=== PATIENT | female | born 1985 | race African-American/Black ===

== ENCOUNTER 2019-03-19 15:50 | Emergency (ER) | payer OTHER, SELFPAY ==
--- NOTE | ~2019-03-19 | US_ITS ---
EXAMINATION: US OB <=14 wk fetus w TV DATE: 03/19/2019 21:55 INDICATION: Right lower abdominal pain, concern for ectopic TECHNIQUE: Real-time pelvic transabdominal and transvaginal ultrasound was performed. COMPARISON: 02/15/2019 FINDINGS: The uterus measures 13.9 x 8.6 x 8.1 cm. There is an intrauterine gestational sac. h eart motion is identified measuring 167 beats per minute (bpm) by M-mode Doppler. The crown rum p length measures 3.9 cm , which correlates with an estimated gestational age of 10 weeks and 6 day(s ) (+/-) 7 day(s). The right ovary measures 2.2 x 2.7 x 3.0 cm. The left ovary measures 3.3 x 2.1 x 1.7 cm. A 2.0 cm hy poechoic area seen posteriorly likely represents a uterine fibroid, better appreciated on the compari son examination. There is no free fluid in the pelvis. IMPRESSION: 1. Live intrauterine with an estimated gestational age of 10 weeks and 6 day(s) (+/-) 7 day (s) and an estimated delivery date of 10/09/2019. Reviewed, dictated and finalized at location A. 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 Live intrauterine with an estimated gestational age of 10 weeks an d 6 day(s) (+/-) 7 day(s) and an estimated delivery date of 10/09/2019.
[2019-03-19 17:06] VITALS: BP 145/105; PULSE 120; RESP 20; TEMP 37.2; O2SAT 99
[2019-03-19 17:31] LABS: Basophils Percent Auto 0.1 % (0.2-1.2); Eosinophils Percent Auto 0.2 % (0-4.4); Hematocrit 39.2 % (37.0-47.0); Hemoglobin 13.4 g/dL (12.0-15.0); Immature Granulocyte Absolute 0.08 K/mm3 (0.00-0.031); Immature Granulocyte Percent A 0.6 % (0-0.5); Immature Platelet Fraction Pct 2.8 % (0.9-11.2); Lymphocytes Absolute Auto 2.39 K/mm3 (0.9-3.2); Lymphocytes Percent Auto 17.6 % (18.3-44.2); Mean Corpuscular HGB Conc 34.2 g/dl (32-36); Mean Corpuscular Hemoglobin 30.8 pg (26-34); Mean Corpuscular Volume 90.1 fl (80-100); Mean Platelet Volume 9.6 fl (7.4-10.4); Monocytes Absolute Auto 0.8 K/mm3 (0.1-0.6); Monocytes Percent Auto 5.8 % (2.6-8.5); Neutrophils Absolute Auto 10.3 K/mm3 (1.3-6.7); Neutrophils Percent Auto 75.7 % (45.5-73.1); Platelet Count Result 278 k/mm3 (150-375); Red Blood Count 4.35 M/mm3 (4.2-5.4); Red Cell Distribution Width 12.6 % (11.5-14.5); White Blood Count 13.6 K/mm3 (4.5-10.0)
[2019-03-19 17:51] LABS: Add Urine Microscopic? YES; Appearance Urine Cloudy (Clear); Bacteria Urine 4+ /hpf; Bilirubin Urine Negative (Negative); Blood Urine Negative (Negative); Color Urine Yellow (Yellow); Glucose Urine UA Negative (Negative); Ketones Urine Negative (Negative); Leukocyte Esterase Ur Trace LEU/UL (Negative); Mucus Urine Few /lpf; Nitrate Urine Positive (Negative); Protein Urine Negative (Negative); Specific Grav Ur 1.023 (1.001-1.035); Squamous Epithelial Cell Urine Many /hpf (Few); Urobilinogen Urine Negative mg/dL (<2.0)
--- NOTE | 2019-03-19 20:12 | ED.ABDPAIN ---
HPI - Abdominal Pain General Chief Complaint: Abdominal Pain Stated Complaint: 12 wks Time Seen by Provider: 03/19/19 20:04 Source: patient Mode of arrival: ambulatory Limitations: no limitations History of Present Illness HPI narrative: The pt is a 33 y/o female who presents to the ED c/o constant RLQ ABD pain onset 6 hours ago. Pt states that she is 12 weeks currently. Pt reports nausea, but denies vomiting, vaginal bleeding, and vaginal discharge. Pt notes that she has not had an ultrasound performed for this . MD elicited complaint: abdominal pain Onset (ago): hour(s) (6) Pain Consistency: constant Location: RLQ Associated symptoms: nausea Related Data Allergies Allergy/AdvReac Type Severity Reaction Status Date / Time No Known Allergies Allergy Unverified 11/25/17 12:39 Review of Systems Review of Systems: All systems reviewed & are unremarkable except as noted in HPI and below Gastrointestinal: Gastrointestinal: Reports abdominal pain (RLQ), Reports nausea and Denies vomiting Genitourinary: Genitourinary: Denies abnormal vaginal bleeding and Denies vaginal discharge PMFSH Past Medical History Medical History Healthy adult Surgical History Surgical History No history of previous surgery Family History Family History (Updated 02/15/19 @ 23:35 by Ava Canchola RN) Other No significant family history Social History Social History Smoking packs per day: 0.5 Smoking cigarettes per day: 10.0 Years smoked: 17 Smoking pack-years: 8.50 Smoking status: Current every day smoker Tobacco type: cigarettes Alcohol intake: never Substance use: never Gender identity (if verbalized by the patient): Female Spiritual care concerns: No Agree to blood products: Yes Exam Narrative: Exam Narrative: GENERAL: Well-appearing, well-nourished, and in no acute distress. HEAD: Normocephalic, atraumatic. EYES: PERRLA and EOMI. ENT: Nares clear, Mucous membranes moist. NECK: Supple. CHEST: Clear to auscultation. No respiratory distress. HEART: Regular rate and rhythm. No murmur heard. Normal peripheral pulses. ABDOMEN: Soft, pain and tenderness in the right lower abd , non distended, normal active bowel sounds. EXTREMITIES: Normal range of motion. No edema. SKIN: Warm, dry, no rash. NEURO: No focal deficits. Alert and oriented x3. PSYCH: Normal mood and affect. Course Course Emergency Course: Inform patient about her lab work, ultrasound findings. Advised her to drink plenty of fluids, take antibiotic as prescribed. And follow-up with her OB doctor. Vital Signs Vital signs: Vital Signs Temperature 37.2 C 03/19/19 17:06 Pulse Rate 120 H 03/19/19 17:06 Respiratory Rate 20 03/19/19 17:06 Blood Pressure 145/105 H 03/19/19 17:06 Pulse Oximetry 99 03/19/19 17:06 Temperature 37.2 C 03/19/19 17:06 Pulse Rate 84 03/19/19 22:29 Respiratory Rate 16 03/19/19 22:29 Blood Pressure 117/74 03/19/19 22:29 Pulse Oximetry 100 03/19/19 22:29 MDM - Abdominal Pain Lab Data Result diagrams: 03/19/19 17:20 Labs: Lab Results 03/19/19 03/19/19 03/19/19 Range/Units 17:20 17:20 17:39 WBC 13.6 H (4.5-10.0) K/mm3 RBC 4.35 (4.2-5.4) M/mm3 Hgb 13.4 (12.0-15.0) g/dL Hct 39.2 (37.0-47.0) % MCV 90.1 (80-100) fl MCH 30.8 (26-34) pg MCHC 34.2 (32-36) g/dl RDW 12.6 (11.5-14.5) % Plt Count 278 (150-375) k/mm3 MPV 9.6 (7.4-10.4) fl Immature Gran % (Auto) 0.6 H (0-0.5) % Neut % (Auto) 75.7 H (45.5-73.1) % Lymph % (Auto) 17.6 L (18.3-44.2) % [place] % (Auto) 5.8 (2.6-8.5) % Eos % (Auto) 0.2 (0-4.4) % Baso % (Auto) 0.1 L (0.2-1.2) % Lymph # (Auto) 2.39 (0.9-3.2) K/mm3 [place] # (Auto) 0.8 H (0.1-0.6)
[2019-03-19 20:53] VITALS: BP 116/75; PULSE 90; RESP 18; O2SAT 100
[2019-03-19 22:29] VITALS: BP 117/74; PULSE 84; RESP 16; O2SAT 100
[2019-03-19 23:13] VITALS: BP 115/85; PULSE 81; RESP 18; TEMP 37; O2SAT 100
== END 2019-03-19 23:15 | disposition home or self-care (01) ==
PROVIDERS: Emergency Medicine; Emergency Provider Family Medicine
DX: O26.891 Other specified pregnancy related conditions, first trimester (principal); R10.31 Right lower quadrant pain; O23.41 Unspecified infection of urinary tract in pregnancy, first trimester; O99.331 Smoking (tobacco) complicating pregnancy, first trimester; F17.210 Nicotine dependence, cigarettes, uncomplicated; Z3A.10 10 weeks gestation of pregnancy
CPT/HCPCS: 36415; 76801; 76817; 81001; 84702; 85025; 85055; 87077; 87086; 87088; 87186; 99284

== ENCOUNTER 2019-03-26 22:01 | Emergency (ER) | payer OTHER, SELFPAY ==
[2019-03-26 22:20] VITALS: BP 109/63; PULSE 96; RESP 16; TEMP 36.9; O2SAT 100
[2019-03-26 22:59] LABS: Basophils Percent Auto 0.3 % (0.2-1.2); Eosinophils Percent Auto 0.3 % (0-4.4); Hematocrit 34.7 % (37.0-47.0); Hemoglobin 11.8 g/dL (12.0-15.0); Immature Granulocyte Absolute 0.08 K/mm3 (0.00-0.031); Immature Granulocyte Percent A 0.7 % (0-0.5); Lymphocytes Absolute Auto 3.19 K/mm3 (0.9-3.2); Lymphocytes Percent Auto 26.9 % (18.3-44.2); Mean Corpuscular Hemoglobin 30.6 pg (26-34); Mean Corpuscular Volume 89.9 fl (80-100); Mean Platelet Volume 9.2 fl (7.4-10.4); Monocytes Absolute Auto 0.9 K/mm3 (0.1-0.6); Monocytes Percent Auto 7.2 % (2.6-8.5); Neutrophils Absolute Auto 7.7 K/mm3 (1.3-6.7); Neutrophils Percent Auto 64.6 % (45.5-73.1); Platelet Count Result 270 k/mm3 (150-375); Red Blood Count 3.86 M/mm3 (4.2-5.4); Red Cell Distribution Width 12.4 % (11.5-14.5); White Blood Count 11.9 K/mm3 (4.5-10.0)
[2019-03-26 23:08] LABS: Add Urine Microscopic? YES; Appearance Urine Clear (Clear); Bacteria Urine Trace /hpf; Bilirubin Urine Negative (Negative); Blood Urine Negative (Negative); Color Urine Yellow (Yellow); Glucose Urine UA Negative (Negative); Ketones Urine Negative (Negative); Leukocyte Esterase Ur Negative LEU/UL (Negative); Mucus Urine Rare /lpf; Nitrate Urine Negative (Negative); Protein Urine Negative (Negative); RBC Urine 0-2 /hpf (0-2); Specific Grav Ur 1.025 (1.001-1.035); Squamous Epithelial Cell Urine Many /hpf (Few); Urobilinogen Urine Negative mg/dL (<2.0); WBC Urine 0-3 /hpf
[2019-03-26 23:12] LABS: Alanine Aminotransferase 17 U/L (4-35); Albumin Level 3.8 g/dL (3.5-5.1); Alkaline Phosphatase 43 U/L (38-126); Aspartate Amino Transferase 26 U/L (14-36); Bilirubin,Total < 0.1 mg/dL (0.2-1.3); Blood Urea Nitrogen 10 mg/dL (7-17); Calcium 9.1 mg/dL (8.4-10.2); Carbon Dioxide 21 mmol/L (22-30); Chloride 101 mmol/L (98-107); Estimated CRCL calculation 161 ml/min; Estimated Glomerular Filt Rate > 60; Glucose 92 mg/dL (65-105); Lipase 121 U/L (23-300); Potassium 4.2 mmol/L (3.4-5.0); Sodium 134 mmol/L (137-145)
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
[2019-03-27] MEDS: ACETAMINOPHEN 500 MG TABLET 1000 MG PO (02:04)
[2019-03-27 02:07] VITALS: BP 118/83; PULSE 81; RESP 12; O2SAT 100
[2019-03-27 02:15] VITALS: BP 118/83; PULSE 87; RESP 15; O2SAT 100
== END 2019-03-27 02:15 | disposition home or self-care (01) ==
PROVIDERS: Emergency Provider Emergency Medicine
DX: O9A.211 Injury, poisoning and certain other consequences of external causes complicating pregnancy, first trimester (principal); S39.91XA Unspecified injury of abdomen, initial encounter; O26.891 Other specified pregnancy related conditions, first trimester; R82.71 Bacteriuria; O99.331 Smoking (tobacco) complicating pregnancy, first trimester; F17.210 Nicotine dependence, cigarettes, uncomplicated; Z3A.12 12 weeks gestation of pregnancy; W51.XXXA Accidental striking against or bumped into by another person, initial encounter; Y93.F9 Activity, other caregiving
CPT/HCPCS: 36415; 80053; 81001; 83690; 84702; 85025; 87070; 87491; 87591; 87808; 99284; A9270

== ENCOUNTER 2019-05-18 21:41 | Emergency (ER) | payer OTHER, SELFPAY ==
[2019-05-18 21:47] VITALS: BP 134/82; PULSE 104; RESP 18; TEMP 36.3; O2SAT 100
--- NOTE | 2019-05-18 22:04 | ED.ABDPAIN ---
HPI - Abdominal Pain General Chief Complaint: Vaginal Bleeding Stated Complaint: spotting, abd paain, vomiting Time Seen by Provider: 05/18/19 21:57 Source: RN notes reviewed History of Present Illness HPI narrative: Patient presents emergency department from work for abdominal pain. Patient states she is currently 17 weeks and is followed by Dr. Garcia at [facility]. She states she is been having lower abdominal pain bilaterally described as cramping for the past 3 days that worsened today. She also states that she has been having mild vaginal bleeding that she notes is small spots of blood for the past 2 days. Patient states he is taking no pain medication today. She states that she has had no fevers or chills nausea vomiting diarrhea or any other symptoms. She was seen by her PCP yesterday and states that she had had heart tones performed and recommended patient to take it easy and follow as an outpatient Related Data Home Medications Medication Instructions Recorded Confirmed [id number] fum-folic ac-om3 pkg PO 05/18/19 [Daily ] Allergies Allergy/AdvReac Type Severity Reaction Status Date / Time No Known Allergies Allergy Verified 05/18/19 21:50 Review of Systems Review of Systems: Narrative: Gen.: Denies fevers or chills ENT: Denies congestion Respiratory: Denies shortness of breath or cough CV: Denies chest pain or palpitations GI: Reports abdominal pain, denies nausea, emesis or diarrhea see HPI Musculoskeletal: Denies back pain or muscle pain Neuro: Denies numbness, tingling, weakness or focal weakness Skin: Denies rash Except as documented, all other systems reviewed and negative [facility] Family History Family History (Updated 02/15/19 @ 23:35 by Ava Canchola RN) Other No significant family history Social History Social History Smoking packs per day: 0.5 Smoking cigarettes per day: 10.0 Years smoked: 17 Smoking pack-years: 8.50 Smoking status: Current every day smoker Tobacco type: cigarettes Alcohol intake: never Substance use: never Gender identity (if verbalized by the patient): Female Spiritual care concerns: No Agree to blood products: Yes Exam Narrative: Exam Narrative: APPEARANCE: No acute distress, nontoxic, resting in bed HEENT: Normocephalic, atraumatic, OMM RESPIRATORY: No respiratory distress, clear to auscultation bilaterally with no rhonchi wheezing or rales CARDIOVASCULAR: RRR s murmur ABDOMINAL: Soft, gravid uterus palpated, tender palpation right lower quadrant left lower quadrant, no tenderness right upper quadrant left upper quadrant, no rebound or guarding : Normal external exam, moderate amount of thick white discharge no vaginal bleeding, cervix is closed, bilateral adnexal tenderness, no cervical motion tenderness MUSCULOSKELETAl: Moves all extremities. No clubbing, cyanosis or edema. NEURO: Awake and alert. Following commands, speech normal, no focal deficits SKIN:: Warm, dry. Normal Color PSYCHIATRIC: Normal affect/mood Course Course Emergency Course: Reviewed old records. Patient with B+ blood type from 02/15/2019 Patient states she is requesting to see an [facility]ERR[facility] OPERATOR hospital Discussed with Dr Schafer for GAS DERRICK OPERATOR presentation work-up. At this time recommends patient receive trichomonas 2 g orally x1 as well as be placed on Macrobid for 5 days for UTI. Agrees with plan for discharge and follow-up as an outpatient Patient states that they are feeling much better at this time. States abdominal pain has improved. Repeat abdominal exam shows the patient's abdomen to be soft with no surgical abdomen present discussed with patient results of workup and diagnosis. Discussed need for follow-up with primary care physician, reasons to return to the emergency department in proper use of medication. Patient understands and agrees to current treatment plan Vital Signs Vital
[2019-05-18 22:17] LABS: Basophils Percent Auto 0.3 % (0.2-1.2); Eosinophils Absolute Auto 0.1 K/mm3 (0-0.3); Eosinophils Percent Auto 0.9 % (0-4.4); Hematocrit 34.2 % (37.0-47.0); Hemoglobin 11.4 g/dL (12.0-15.0); Immature Granulocyte Absolute 0.09 K/mm3 (0.00-0.031); Immature Granulocyte Percent A 0.6 % (0-0.5); Lymphocytes Absolute Auto 3.44 K/mm3 (0.9-3.2); Lymphocytes Percent Auto 22.6 % (18.3-44.2); Mean Corpuscular HGB Conc 33.3 g/dl (32-36); Mean Corpuscular Hemoglobin 30.6 pg (26-34); Mean Corpuscular Volume 91.9 fl (80-100); Mean Platelet Volume 9.7 fl (7.4-10.4); Monocytes Absolute Auto 0.9 K/mm3 (0.1-0.6); Monocytes Percent Auto 6.1 % (2.6-8.5); Neutrophils Absolute Auto 10.6 K/mm3 (1.3-6.7); Neutrophils Percent Auto 69.5 % (45.5-73.1); Platelet Count Result 256 k/mm3 (150-375); Red Blood Count 3.72 M/mm3 (4.2-5.4); Red Cell Distribution Width 13.2 % (11.5-14.5); White Blood Count 15.2 K/mm3 (4.5-10.0)
[2019-05-18] MEDS: LACTATED RINGERS 1,000 ML 999 ML IV CONT (22:22)
[2019-05-18 22:34] LABS: Alanine Aminotransferase 15 U/L (4-35); Albumin Level 3.6 g/dL (3.5-5.1); Alkaline Phosphatase 52 U/L (38-126); Aspartate Amino Transferase 29 U/L (14-36); Bilirubin,Total 0.2 mg/dL (0.2-1.3); Blood Urea Nitrogen 15 mg/dL (7-17); Calcium 8.8 mg/dL (8.4-10.2); Carbon Dioxide 20 mmol/L (22-30); Chloride 107 mmol/L (98-107); Estimated CRCL calculation 111 ml/min; Estimated Glomerular Filt Rate > 60; Glucose 71 mg/dL (65-105); Potassium 4.1 mmol/L (3.4-5.0); Sodium 133 mmol/L (137-145)
[2019-05-18 23:18] LABS: Add Urine Microscopic? YES; Appearance Urine Cloudy (Clear); Bacteria Urine Trace /hpf; Bilirubin Urine Negative (Negative); Blood Urine 1+ (Negative); Color Urine Straw (Yellow); Glucose Urine UA Negative (Negative); Ketones Urine Negative (Negative); Leukocyte Esterase Ur 2+ LEU/UL (Negative); Mucus Urine Rare /lpf; Nitrate Urine Negative (Negative); Protein Urine Negative (Negative); RBC Urine 0-2 /hpf (0-2); Specific Grav Ur 1.013 (1.001-1.035); Squamous Epithelial Cell Urine Moderate /hpf (Few); Urobilinogen Urine Negative mg/dL (<2.0)
[2019-05-19] MEDS: NITROFURANTOIN MONOHYD MACROCR 100 MG CAP PO (00:41)
[2019-05-19] MEDS: metroNIDAZOLE 250 MG TABLET 2000 MG PO (00:41)
[2019-05-19 00:47] VITALS: BP 132/88; PULSE 80; RESP 18; O2SAT 99
== END 2019-05-19 00:50 | disposition home or self-care (01) ==
PROVIDERS: Emergency Provider Emergency Medicine
DX: O98.312 Other infections with a predominantly sexual mode of transmission complicating pregnancy, second trimester (principal); A59.00 Urogenital trichomoniasis, unspecified; O23.42 Unspecified infection of urinary tract in pregnancy, second trimester; O26.892 Other specified pregnancy related conditions, second trimester; R10.31 Right lower quadrant pain; R10.32 Left lower quadrant pain; O99.332 Smoking (tobacco) complicating pregnancy, second trimester; F17.210 Nicotine dependence, cigarettes, uncomplicated; Z3A.17 17 weeks gestation of pregnancy
CPT/HCPCS: 36415; 80053; 81001; 85025; 87070; 87077; 87086; 87088; 87186; 87491; 87591; 87808; 96361; 96365; 99284; A9270; J0131; J7120

== ENCOUNTER 2019-07-12 17:23 | Observation (INO) | payer OTHER, SELFPAY ==
[2019-07-12 17:22] VITALS: TEMP 36.2
[2019-07-12 17:39] VITALS: BP 122/72; PULSE 86
[2019-07-12 17:45] VITALS: BP 132/86; PULSE 90
[2019-07-12 18:30] VITALS: BMI 25.1
--- NOTE | 2019-07-12 19:05 | PC.NURSE ---
Took sandwich/chips and drink to pt. Pt states she is currently having no pain and is very hungry.
--- NOTE | 2019-07-12 19:08 | OBADM ---
This patient, Sunny Michelle, admitted to the OB room OB Post 116 for observation. Patient/family oriented to hospital policies and general routines including ID bracelet, bed and alarms, visiting hours, pain management, procedures, bathroom and other care routines, personal items, smoking policy, room service/diet, and visiting hours. Patient/Family are encouraged to report perceived risks to care and to ask questions if they do not understand what they are told or what they should do. Pt denies leaking or bleeding. Pt feeling movements.
[2019-07-12] MEDS: FAMOTIDINE 20 MG/2 ML VIAL IV PUSH (19:29)
--- NOTE | 2019-07-16 08:44 | PM.OBTRLD ---
OB - Triage/Final Diagnosis Final Diagnosis (1) Abdominal pain affecting : Code(s): O26.899 - Other specified related conditions, unspecified trimester; R10.9 - Unspecified abdominal pain Status: Acute
== END 2019-07-12 22:35 | disposition home or self-care (01) ==
LOC: ANHED 17:26 → ANHOBPP 17:36
PROVIDERS: Admitting Provider Obstetrics & Gynecology; Visit Provider Obstetrics & Gynecology
DX: O26.892 Other specified pregnancy related conditions, second trimester (principal); R10.9 Unspecified abdominal pain; Z3A.27 27 weeks gestation of pregnancy
CPT/HCPCS: 96365; 96375; G0378; G0379; J0131

== ENCOUNTER 2019-08-04 21:20 | Emergency (ER) | payer OTHER, SELFPAY ==
[2019-08-04 21:23] VITALS: BP 121/71; PULSE 94; RESP 18; TEMP 36.2; O2SAT 99
--- NOTE | 2019-08-05 00:08 | ED.GENADULT ---
HPI - General Adult General Chief complaint: Unspecified Stated complaint: hemorriods bleeding/painful Time Seen by Provider: 08/05/19 00:09 History of Present Illness HPI narrative: Patient presents for rectal pain. She is 32 weeks and has hemorrhoids. They started the beginning of this . They are not bleeding. She also complains of a sore next to the rectum on the buttock. She does not know whether it had any drainage. She said no fever chills or sweats. She was given a stool softener but has not started taking it. The only way that she can pass her stools to get in the bathtub. She still taking her vitamins with iron. She still smokes cigarettes, but does not drink alcohol. 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 Onset (ago): month(s) Location: buttocks Radiation: non-radiation Severity: severe Severity scale (1-10): 8 Quality: constant Pain Consistency: constant Relieving factors: none Exacerbating factors: other (Sitting or stooling) Associated symptoms: denies other symptoms Treatments prior to arrival: none Related Data Home Medications Medication Instructions Recorded Confirmed Daily See Rx Instructions .ROUTE .COMPLEX 05/18/19 07/12/19 cephalexin 250 mg PO DAILY 07/12/19 07/12/19 metoclopramide HCl [Reglan] 10 mg PO PRN PRN 07/12/19 07/12/19 acetaminophen [Tylenol Extra 1,000 mg PO QID PRN 08/04/19 Strength] Allergies Allergy/AdvReac Type Severity Reaction Status Date / Time No Known Allergies Allergy Verified 08/04/19 23:34 Review of Systems Review of Systems: Narrative: CONSTITUTIONAL: Denies fever, chills, or sweats. EYES: Denies visual changes, redness, or discharge. ENT: Denies rhinorrhea, congestion, sore throat, or otalgia. CARDIOVASCULAR: Denies chest pain, palpitations, or edema. RESPIRATORY: Denies cough or dyspnea. GASTROINTESTINAL: Denies abdominal pain, vomiting, but does have nausea and diarrhea. GENITOURINARY: Denies dysuria or hematuria. SKIN: Denies rash or itching. MUSCULOSKELETAL: Denies back pain, joint pain, or myalgia. NEUROLOGIC: Denies headache, numbness, or weakness. PSYCHIATRIC: Denies anxiety or depression. [facility] Past Medical History Medical History Ovarian cyst Trichimoniasis UTI (urinary tract infection) Surgical History Surgical History No history of previous surgery Family History Family History (Updated 02/15/19 @ 23:35 by Ava Canchola RN) Other No significant family history Social History Social History Smoking packs per day: 0.5 Smoking cigarettes per day: 10.0 Years smoked: 17 Smoking pack-years: 8.50 Smoking status: Current every day smoker Tobacco type: cigarettes Alcohol intake: never Substance use: never Gender identity (if verbalized by the patient): Female Spiritual care concerns: No Agree to blood products: Yes Exam Narrative: Exam Narrative: GENERAL: Well-appearing, well-nourished, and in no acute distress. HEAD: Normocephalic, atraumatic. EYES: PERRLA and EOMI. ENT: Nares clear, no rhinorrhea or epistaxis. Mucous membranes moist. NECK: Supple. CHEST: Clear to auscultation. No respiratory distress. HEART: Regular rate and rhythm. No murmur heard. Normal peripheral pulses. ABDOMEN: Soft, nontender, nondistended, normal active bowel sounds. 4 mm hemorrhoid at 4:00, not thrombosed. Hypopigmented tender area adjacent on the buttock, with an opening but no drainage. EXTREMITIES: Normal range of motion. No edema. SKIN: Warm, dry, no rash. NEURO: No focal deficits. Alert and oriented x3. PSYCH: Normal mood and affect. Course Reevaluation(s) Reevaluation #1: Patient not feeling better with the Ultram and the lidocaine gel. We will try to I&D the buttock sore. Will order Percocet for the procedure. Through procedure she explained that ever
[2019-08-05 00:40] VITALS: BP 102/66; PULSE 93; RESP 14; O2SAT 100
[2019-08-05] MEDS: LIDOCAINE HCL 2% JELLY 5 ML TUBE 1 APPLIC (01:00)
[2019-08-05] MEDS: ONDANSETRON HCL ODT 4 MG TABLET PO (01:00)
[2019-08-05] MEDS: traMADol HCL 50 MG TABLET PO (01:01)
[2019-08-05] MEDS: AMOXICILLIN/CLAVULANATE K 875-125 MG TAB 1 TABLET PO (01:02)
[2019-08-05] MEDS: oxyCODONE/ACETAMINOPHEN 5-325 MG TABLET 1 TABLET PO (02:13)
== END 2019-08-05 02:10 | disposition home or self-care (01) ==
PROVIDERS: Emergency Provider Emergency Medicine
DX: O99.713 Diseases of the skin and subcutaneous tissue complicating pregnancy, third trimester (principal); L02.31 Cutaneous abscess of buttock; O99.613 Diseases of the digestive system complicating pregnancy, third trimester; K64.4 Residual hemorrhoidal skin tags; O99.333 Smoking (tobacco) complicating pregnancy, third trimester; F17.210 Nicotine dependence, cigarettes, uncomplicated; Z3A.32 32 weeks gestation of pregnancy
CPT/HCPCS: 10060; 56405; 99283; A9270

== ENCOUNTER 2021-03-12 08:44 | Emergency (ER) | payer OTHER, SELFPAY ==
--- NOTE | ~2021-03-12 | CT_ITS ---
EXAMINATION: CT abdomen pelvis w con DATE: 03/12/2021 10:26 INDICATION: Right lower quadrant pain. Vomiting. Evaluate for appendicitis. TECHNIQUE: Computed tomography (CT) of the abdomen and pelvis was performed with 100 cc Omnipaque 350 intravenous contrast. The dose-length product was 231.47 mGy-cm. Automated exposure control and iter ative reconstruction technique were employed. COMPARISON: CT dated 11/25/2017 FINDINGS: Lung bases are unremarkable. Heart size normal. No significant pleural or pericardial effus ion. The liver, spleen, pancreas, adrenal glands and kidneys are unremarkable. Gallbladder is contrac evelin. Nonobstructive bowel gas pattern. Moderate colonic fecal loading. The appendix is unremarkable. No significant periappendiceal inflammatory change. Small exophytic uterine fibroid posteriorly. Blad rita is decompressed. No free air. No significant vascular abnormality. No lymphadenopathy. No acute o sseous abnormality. Nonobstructive bowel gas pattern. IMPRESSION: 1. No acute abdominal abnormality. Reviewed, dictated and finalized at location A. 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
[2021-03-12 09:19] VITALS: BP 142/106; PULSE 93; RESP 18; TEMP 36.9; O2SAT 100
[2021-03-12 09:41] LABS: Basophils Percent Auto 0.3 % (0.2-1.2); Eosinophils Percent Auto 0.2 % (0-4.4); Hematocrit 41.8 % (37.0-47.0); Hemoglobin 14.1 g/dL (12.0-15.0); Immature Granulocyte Absolute 0.03 K/mm3 (0.00-0.031); Immature Granulocyte Percent A 0.3 % (0-0.5); Lymphocytes Absolute Auto 2.53 K/mm3 (0.9-3.2); Lymphocytes Percent Auto 27.1 % (18.3-44.2); Mean Corpuscular HGB Conc 33.7 g/dl (32-36); Mean Corpuscular Hemoglobin 30.6 pg (26-34); Mean Corpuscular Volume 90.7 fl (80-100); Mean Platelet Volume 9.2 fl (7.4-10.4); Monocytes Absolute Auto 0.5 K/mm3 (0.1-0.6); Monocytes Percent Auto 5.1 % (2.6-8.5); Neutrophils Absolute Auto 6.3 K/mm3 (1.3-6.7); Platelet Count Result 265 k/mm3 (150-375); Red Blood Count 4.61 M/mm3 (4.2-5.4); Red Cell Distribution Width 13.4 % (11.5-14.5); White Blood Count 9.3 K/mm3 (4.5-10.0)
[2021-03-12 09:49] LABS: Alanine Aminotransferase 28 U/L (4-35); Albumin Level 4.6 g/dL (3.5-5.1); Alkaline Phosphatase 56 U/L (38-126); Anion Gap 7 mmol/L (8-16); Aspartate Amino Transferase 44 U/L (14-36); Bilirubin,Total 0.4 mg/dL (0.2-1.3); Blood Urea Nitrogen 8 mg/dL (7-17); Calcium 9.6 mg/dL (8.4-10.2); Carbon Dioxide 24 mmol/L (22-30); Chloride 109 mmol/L (98-107); Estimated CRCL calculation 88 ml/min; Estimated Glomerular Filt Rate > 60; Glucose 96 mg/dL (65-110); Lipase 91 U/L (23-300); Potassium 4.2 mmol/L (3.4-5.0); Sodium 140 mmol/L (137-145)
[2021-03-12 09:55] LABS: Add Urine Microscopic? YES; Appearance Urine Cloudy (Clear); Bacteria Urine Trace /hpf; Bilirubin Urine Negative (Negative); Blood Urine 3+ (Negative); Color Urine Yellow (Yellow); Glucose Urine UA Negative (Negative); Ketones Urine Negative (Negative); Leukocyte Esterase Ur Negative LEU/UL (Negative); Mucus Urine Few /lpf; Nitrate Urine Positive (Negative); Protein Urine 1+ mg/dL (Negative); RBC Urine >75 /hpf (0-2); Specific Grav Ur 1.015 (1.001-1.035); Squamous Epithelial Cell Urine Moderate /hpf (Few); Urobilinogen Urine Negative mg/dL (<2.0); WBC Urine 21-30 /hpf
--- NOTE | 2021-03-12 10:23 | PC.NURSE ---
Pt in CT at this time
[2021-03-12] MEDS: SODIUM CHLORIDE 0.9% IV 1,000 ML 999 ML IV CONT (10:48)
[2021-03-12] MEDS: ONDANSETRON INJ 4 MG/2 ML VIAL IV PUSH (10:48)
[2021-03-12] MEDS: MORPHINE SULFATE (*CRX) 4 MG/ML INJ IV PUSH (10:48)
--- NOTE | 2021-03-12 10:52 | ED.ABDPAIN ---
HPI - Abdominal Pain General Chief Complaint: Abdominal Pain Stated Complaint: vomiting, abd pain Time Seen by Provider: 03/12/21 09:46 Source: patient History of Present Illness HPI narrative: Patient presents with right lower quadrant abdominal pain. Pain for symptoms started this morning she has a sharp pain that radiates to her back associated with nausea and vomiting no clear aggravating or alleviating factors. She has not noted any urinary symptoms she denies diarrhea or constipation. She denies prior abdominal surgeries. She reports subjective fevers Related Data Allergies Allergy/AdvReac Type Severity Reaction Status Date / Time No Known Allergies Allergy Verified 03/12/21 09:29 Review of Systems Review of Systems: CONSTITUTIONAL: Denies fever, chills, or sweats. EYES: Denies visual changes, redness, or discharge. ENT: Denies rhinorrhea, congestion, sore throat, or otalgia. CARDIOVASCULAR: Denies chest pain, palpitations, or edema. RESPIRATORY: Denies cough or dyspnea. GASTROINTESTINAL: Abdominal pain and nausea. GENITOURINARY: Denies dysuria or hematuria. SKIN: Denies rash or itching. MUSCULOSKELETAL: Denies back pain, joint pain, or myalgia. NEUROLOGIC: Denies headache, numbness, dizziness, or weakness. PSYCHIATRIC: Denies anxiety or depression. All systems reviewed & are unremarkable except as noted in HPI and below PMFSH Past Medical History Medical History (Updated 03/12/21 @ 11:40 by Skyler Martinez MD) Ovarian cyst Trichimoniasis UTI (urinary tract infection) Surgical History Surgical History No history of previous surgery Family History Family History Other No significant family history Social History Social History Smoking packs per day: 0.5 Smoking cigarettes per day: 10.0 Years smoked: 17 Smoking pack-years: 8.50 Smoking status: Current every day smoker Tobacco type: cigarettes Alcohol intake: never Substance use: never Gender identity (if verbalized by the patient): Female Spiritual care concerns: No Agree to blood products: Yes Exam Narrative: GENERAL: Well-appearing, well-nourished, and in no acute distress. HEAD: Normocephalic, atraumatic. EYES: PERRLA and EOMI. ENT: Nares clear, no rhinorrhea or epistaxis. Mucous membranes moist. NECK: Supple. No masses. No JVD CHEST: Clear to auscultation. No respiratory distress. No wheezes rales or rhonchi HEART: Regular rate and rhythm. No murmur heard. Normal peripheral pulses. ABDOMEN: Soft, nontender, nondistended, normal active bowel sounds. EXTREMITIES: Normal range of motion. No edema. SKIN: Warm, dry, no rash. NEURO: No focal deficits. Alert and oriented x3. PSYCH: Normal mood and affect. Course Reevaluation(s) Reevaluation #1: Patient reports feeling much improved results and plan reviewed with patient. Patient is comfortable with outpatient plan. Date: 03/12/21 Time: 11:38 Vital Signs Vital signs: Vital Signs Temperature 36.9 C 03/12/21 09:19 Pulse Rate 93 03/12/21 09:19 Respiratory Rate 18 03/12/21 09:19 Blood Pressure 142/106 H 03/12/21 09:19 Pulse Oximetry 100 03/12/21 09:19 Temperature 36.9 C 03/12/21 09:19 Pulse Rate 84 03/12/21 12:05 Respiratory Rate 18 03/12/21 12:05 Blood Pressure 141/98 H 03/12/21 12:05 Pulse Oximetry 98 03/12/21 12:05 MDM - Abdominal Pain MDM Narrative Medical decision making narrative: H&P as above, vss, pt looks clinically well, exam denies any abdominal pain, labs with UA concerning for infection otherwise are clinically unremarkable, img without acute surgical process, additional labs/img considered, symptomatic relief available as needed, on reevaluation pt continues to looks clinically well. Suspect UTI, dns severe sepsis, abscess, perforation, appendicitis, tor
[2021-03-12 12:05] VITALS: BP 141/98; PULSE 84; RESP 18; O2SAT 98
== END 2021-03-12 12:07 | disposition home or self-care (01) ==
PROVIDERS: Emergency Provider Emergency Medicine
DX: N39.0 Urinary tract infection, site not specified (principal); R31.9 Hematuria, unspecified; Z87.440 Personal history of urinary (tract) infections; F17.210 Nicotine dependence, cigarettes, uncomplicated
CPT/HCPCS: 36415; 74177; 80053; 81001; 81025; 83690; 85025; 87077; 87086; 87088; 87186; 96361; 96374; 96375; 99284; J2270; J2405; J7030; Q9967

== ENCOUNTER 2022-09-27 09:18 | Emergency (ER) | payer OTHER, SELFPAY ==
--- NOTE | ~2022-09-27 | US_ITS ---
EXAMINATION: US OB <=14 wk fetus w TV DATE: 09/27/2022 12:52 INDICATION: Low abdominal pain. Nausea and vomiting. . TECHNIQUE: Real-time transabdominal and transvaginal pelvic ultrasound was performed. COMPARISON: None. FINDINGS: TRANSABDOMINAL ULTRASOUND: The uterus measures 10.9 x 7.0 x 8.7 cm. TRANSVAGINAL ULTRASOUND: There is an intrauterine gestational sac. A yolk sac is identified. The fet al crown rump length measures 4 mm, which correlates with an estimated gestational age of 6 weeks and 1 day(s) (+/-) 4 day(s). heart motion is identified measuring 124 beats per minute (bpm) by M- mode Doppler. There are 1.8 cm and 1.2 cm intramural fibroids. The right ovary measures 2.8 x 1.9 x 1 .4 cm. The left ovary measures 3.7 x 2.3 x 1.9 cm. There is no free fluid in the pelvis. IMPRESSION: 1. Single living intrauterine gestation with estimated date of delivery of 05/22/2023. 2. Uterine fibroids. Reviewed, dictated and finalized at location A. IMPRESSION: 1. Single living intrauterine gestation with estimated date of delivery of 05/06. 2. Uterine fibroids.
[2022-09-27 09:20] VITALS: BP 134/74; PULSE 86; RESP 18; TEMP 36.3; O2SAT 100
--- NOTE | 2022-09-27 09:32 | ED.NAVMDI ---
HPI - Nausea/Vomiting/Diarrhea General Chief complaint: Nausea/Vomiting/Diarrhea Stated complaint: N/V/D and pelvic pain Time Seen by Provider: 09/27/22 09:24 Source: patient Mode of arrival: ambulatory Limitations: no limitations History of Present Illness HPI Narrative: Patient is a 37-year-old female who presents to the ED with report of pelvic pain and N/V. Patient reports she has been having lower pelvic pain, worse on the right side, for the last 2 weeks. Pain has been fairly constant. She has not tried anything for the pain. This morning, she woke up with worsening pain. She also reported having nausea and vomiting today. She states she is unable to keep down any food or drink. She tried going to work, but became dizzy after vomiting, which prompted her presentation here. Patient does still feel nauseous currently. Denies any further dizziness. Denies any abnormal vaginal bleeding. She states her last cycle was 08/11. She typically has normal cycles. She states there is a chance she could be . Her last sexual encounter was 08/08. Patient has had 2 previous children. She otherwise denies any fevers, diarrhea, constipation, vaginal discharge, urinary symptoms. Related Data Allergies Allergy/AdvReac Type Severity Reaction Status Date / Time No Known Allergies Allergy Verified 03/12/21 09:29 Review of Systems Review of Systems: CONSTITUTIONAL: Denies fever, chills, or sweats. CARDIOVASCULAR: Denies chest pain. RESPIRATORY: Denies dyspnea. GASTROINTESTINAL: See HPI. GENITOURINARY: See HPI. SKIN: Denies rash or itching. MUSCULOSKELETAL: Denies back pain, joint pain, or myalgia. NEUROLOGIC: Denies headache, numbness, or weakness. All systems reviewed & are unremarkable except as noted in HPI and below [facility] Past Medical History Medical History (Updated 09/27/22 @ 13:27 by Sonali Sinclair PA-C) Ovarian cyst Trichimoniasis UTI (urinary tract infection) Surgical History Surgical History No history of previous surgery Family History Family History Other No significant family history Social History Social History Smoking packs per day: 0.5 Smoking cigarettes per day: 10.0 Years smoked: 17 Smoking pack-years: 8.50 Smoking status: Current every day smoker Tobacco type: cigarettes Alcohol intake: never Substance use: never Gender identity (if verbalized by the patient): Female Spiritual care concerns: No Agree to blood products: Yes Exam Narrative: GENERAL: Well appearing, well-nourished, non-toxic, in no acute distress. HEAD: Normocephalic, atraumatic. NECK: Supple. No adenopathy, no masses. RESPIRATORY: Airway patent, respirations nonlabored. Clear to auscultation bilaterally, no rales, rhonchi, wheezing. CARDIOVASCULAR: Regular rate and rhythm without murmurs, rubs, or gallops. Radial pulses 2+ and equal bilaterally. ABDOMINAL: Soft, mild tenderness throughout lower abdomen, worse in RLQ, nondistended, no hepatosplenomegaly. Normoactive BS. MUSCULOSKELETAL: Moves all extremities. Strength/ROM intact without gross deformities. SKIN: Warm, dry, normal color. No rashes. NEURO: A&O X3. Speech clear. Cranial nerves II-XII grossly intact. Steady gait. No ataxic movements. PSYCHIATRIC: Appropriate mood and affect. Normal interaction. Course Vital Signs Vital signs: Vital Signs Temperature 97.3 F L 09/27/22 09:20 Pulse Rate 86 09/27/22 09:20 Respiratory Rate 18 09/27/22 09:20 Blood Pressure 134/74 09/27/22 09:20 Pulse Oximetry 100 09/27/22 09:20 Oxygen Delivery Room Air 09/27/22 09:20 Temperature 97.3 F L 09/27/22 09:20 Pulse Rate 81 09/27/22 11:01 Respiratory Rate 19 09/27/22 11:01 Blood Pressure 138/86 09/27/22 11:01 Pulse Oximetry 100 08
[2022-09-27 10:01] LABS: Basophils Percent Auto 0.2 % (0.2-1.2); Eosinophils Absolute Auto 0.1 K/mm3 (0-0.3); Eosinophils Percent Auto 0.6 % (0-4.4); Hematocrit 39.8 % (37.0-47.0); Hemoglobin 13.5 g/dL (12.0-15.0); Immature Granulocyte Absolute 0.05 K/mm3 (0.00-0.031); Immature Granulocyte Percent A 0.5 % (0-0.5); Lymphocytes Percent Auto 23.7 % (18.3-44.2); Mean Corpuscular HGB Conc 33.9 g/dl (32-36); Mean Corpuscular Hemoglobin 31.5 pg (26-34); Mean Corpuscular Volume 92.8 fl (80-100); Monocytes Absolute Auto 0.7 K/mm3 (0.1-0.6); Monocytes Percent Auto 6.7 % (2.6-8.5); Neutrophils Absolute Auto 7.2 K/mm3 (1.3-6.7); Neutrophils Percent Auto 68.3 % (45.5-73.1); Platelet Count Result 278 k/mm3 (150-375); Red Blood Count 4.29 M/mm3 (4.2-5.4); Red Cell Distribution Width 13.2 % (11.5-14.5); White Blood Count 10.5 K/mm3 (4.5-10.0)
[2022-09-27] MEDS: SODIUM CHLORIDE 0.9% IV 1,000 ML 999 ML IV CONT (10:08)
[2022-09-27] MEDS: METOCLOPRAMIDE HCL INJ 10 MG/2 ML VIAL IV PUSH (10:08)
[2022-09-27 10:09] VITALS: BP 136/95; PULSE 83; PULSE 84; RESP 12; RESP 9; O2SAT 100
[2022-09-27 10:23] LABS: Appearance Urine Cloudy (Clear); Bacteria Urine 4+ /hpf; Bilirubin Urine Negative (Negative); Blood Urine Negative (Negative); Color Urine Yellow (Yellow); Glucose Urine UA Negative (Negative); Ketones Urine Negative (Negative); Leukocyte Esterase Ur 1+ LEU/UL (Negative); Need Manual Microscopic Reviewed; Nitrate Urine Positive (Negative); Protein Urine Negative (Negative); RBC Urine 0-2 /hpf (0-2); Specific Grav Ur 1.015 (1.001-1.035); Squamous Epithelial Cell Urine None seen /hpf (Few); Urobilinogen Urine 0.2 mg/dL (<2.0); WBC Urine 21-50 /hpf
[2022-09-27 10:24] LABS: Add Urine Microscopic? YES
[2022-09-27 10:38] LABS: Alanine Aminotransferase 29 U/L (6-35); Albumin Level 3.9 g/dL (3.5-5.1); Alkaline Phosphatase 57 U/L (38-126); Anion Gap 5 mmol/L (8-16); Aspartate Amino Transferase 36 U/L (14-36); Bilirubin,Total 0.2 mg/dL (0.2-1.3); Blood Urea Nitrogen 10 mg/dL (7-17); Calcium 8.6 mg/dL (8.4-10.2); Carbon Dioxide 20 mmol/L (22-30); Chloride 107 mmol/L (98-107); Estimated CRCL calculation 127 ml/min; Estimated Glomerular Filt Rate > 60; Glucose 86 mg/dL (65-110); Lipase 101 U/L (23-300); Potassium 3.9 mmol/L (3.4-5.0); Sodium 132 mmol/L (137-145)
[2022-09-27 11:01] VITALS: BP 138/86; PULSE 81; RESP 19; O2SAT 100
--- NOTE | 2022-09-27 12:00 | PC.NURSE ---
Pt to US at this time. Orthos to be obtained when pt is back in ED.
== END 2022-09-27 13:38 | disposition home or self-care (01) ==
PROVIDERS: Emergency Provider Physician Assistant
DX: O21.9 Vomiting of pregnancy, unspecified (principal); O23.41 Unspecified infection of urinary tract in pregnancy, first trimester; N39.0 Urinary tract infection, site not specified; O34.11 Maternal care for benign tumor of corpus uteri, first trimester; O99.331 Smoking (tobacco) complicating pregnancy, first trimester; F17.210 Nicotine dependence, cigarettes, uncomplicated; Z87.440 Personal history of urinary (tract) infections; Z3A.01 Less than 8 weeks gestation of pregnancy
CPT/HCPCS: 36415; 76801; 76817; 80053; 81001; 81025; 83690; 84702; 85025; 87077; 87086; 87088; 87186; 96361; 96374; 99284; J2765; J7030

== ENCOUNTER 2022-11-16 13:37 | Emergency (ER) | payer OTHER, SELFPAY ==
--- NOTE | ~2022-11-16 | US_ITS ---
EXAMINATION: US OB follow up, US OB transvaginal DATE: 11/16/2022 15:57 INDICATION: Threatened miscarriage TECHNIQUE: Real-time transabdominal obstetric ultrasound. FINDINGS: Comparison to ultrasound dated 09/27/2022 There is a single living fetus in breech presentation. The placenta is posterior without placenta pr evia. cardiac activity and movement is noted with a heart rate of 152 beats per minute. T he amniotic fluid volume is normal. [place]-rump length measures 8.7 cm (EGA 14 weeks 4 days). heart rate 152 BPM. Cervical length is 3.5 cm. There is fluid in the cervix. Amniotic fluid is subjectively normal. IMPRESSION: 1. Single living fetus in breech presentation with an estimated gestational age of 13 weeks 2 days b y inititial ultrasound. 2: Cervical length is 3.5 cm. Fluid present in the cervix. Reviewed, dictated and finalized at location A. IMPRESSION: 1. Single living fetus in breech presentation with an estimated gestational ag e of 13 weeks 2 days by inititial ultrasound. 2: Cervical length is 3.5 cm. Fluid present in the cervix.
[2022-11-16 13:39] VITALS: BP 110/66; PULSE 98; RESP 16; TEMP 36.9; O2SAT 100
[2022-11-16 14:00] LABS: Basophils Percent Auto 0.2 % (0.2-1.2); Eosinophils Absolute Auto 0.1 K/mm3 (0-0.3); Eosinophils Percent Auto 0.5 % (0-4.4); Hematocrit 36.5 % (37.0-47.0); Hemoglobin 12.5 g/dL (12.0-15.0); Immature Granulocyte Absolute 0.07 K/mm3 (0.00-0.031); Immature Granulocyte Percent A 0.6 % (0-0.5); Lymphocytes Absolute Auto 2.65 K/mm3 (0.9-3.2); Mean Corpuscular HGB Conc 34.2 g/dl (32-36); Mean Corpuscular Hemoglobin 31.8 pg (26-34); Mean Corpuscular Volume 92.9 fl (80-100); Mean Platelet Volume 9.3 fl (7.4-10.4); Monocytes Absolute Auto 0.8 K/mm3 (0.1-0.6); Neutrophils Absolute Auto 9.1 K/mm3 (1.3-6.7); Neutrophils Percent Auto 71.7 % (45.5-73.1); Platelet Count Result 271 k/mm3 (150-375); Red Blood Count 3.93 M/mm3 (4.2-5.4); White Blood Count 12.6 K/mm3 (4.5-10.0)
--- NOTE | 2022-11-16 16:43 | ED.PREGNANCY ---
HPI - General Chief complaint: Vaginal Bleeding Stated complaint: vag bleed/ Time Seen by Provider: 11/16/22 14:40 History of Present Illness HPI Narrative: Patient is a 37-year-old female who presents to the emergency department this afternoon complaining of vaginal bleeding. Patient admits that she is approximately 14 weeks and states that today she has had approximately 50 to 60 cc of vaginal bleeding. 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 Patient states that her last ultrasound was approximately 1 week ago. Patient denies any chest pain, shortness of breath, nausea, vomiting, abdominal pain, dysuria, hematuria, constipation, diarrhea, melena, hematochezia, fevers or chills. He also denies any headaches, dizziness, lightheadedness, blurry visions, dizziness, focal weakness, numbness and or tingling. There are no other modifying, alleviating, or precipitating factors at this time. Related Data Allergies Allergy/AdvReac Type Severity Reaction Status Date / Time No Known Allergies Allergy Verified 03/12/21 09:29 Review of Systems Review of Systems: All systems are reviewed and are negative unless stated otherwise in the HPI. [facility] Past Medical History Medical History Ovarian cyst Trichimoniasis UTI (urinary tract infection) Surgical History Surgical History No history of previous surgery Family History Family History Other No significant family history Social History Social History Smoking packs per day: 0.5 Smoking cigarettes per day: 10.0 Years smoked: 17 Smoking pack-years: 8.50 Smoking status: Current every day smoker Tobacco type: cigarettes Alcohol intake: never Substance use: never Gender identity (if verbalized by the patient): Female Spiritual care concerns: No Agree to blood products: Yes Exam Narrative: General: Alert, awake, afebrile, in no acute distress. HEENT: PERRL, no rhinorrhea, no post nasal drip, oropharynx clear. Neck: Trachea midline, no JVD, no lymphadenopathy. Cardiovascular: Regular rate and rhythm, no murmurs, rubs or gallops, no peripheral edema. Respiratory: Clear to auscultation bilaterally, no tachypnea, no wheezing, no rhonchi, no rubs, no respiratory distress. Abdomen: Soft, nontender, nondistended, no rebound, no guarding, no peritoneal signs. Musculoskeletal: No joint swelling or deformity, normal muscle tone. Skin: No rashes or petechia, no signs of infection. Psychiatric: Alert and oriented, normal behavior and judgment for situation. Neurological: Alert and oriented to person, place, and time. Follows all commands. No focal deficits, speech is clear and fluent. Course Vital Signs Vital signs: Vital Signs Temperature 98.4 F 11/16/22 13:39 Pulse Rate 98 11/16/22 13:39 Respiratory Rate 16 11/16/22 13:39 Blood Pressure 110/66 11/16/22 13:39 Pulse Oximetry 100 11/16/22 13:39 Oxygen Delivery Room Air 11/16/22 13:39 Temperature 98.4 F 11/16/22 13:39 Pulse Rate 98 11/16/22 13:39 Respiratory Rate 16 11/16/22 13:39 Blood Pressure 110/66 11/16/22 13:39 Pulse Oximetry 100 11/16/22 13:39 Oxygen Delivery Room Air 11/16/22 13:39 MDM - OB/Uterine Contractions MDM Narrative Medical decision making narrative: The patient was evaluated by myself in the emergency department. History is obtained from patient who is an independent historian and physical exam was performed. External medical records were reviewed at this time. IV was established and pertinent tests were ordered. Laboratory results obtained revealing no acute process. Patient is Rh+
== END 2022-11-16 17:07 | disposition home or self-care (01) ==
PROVIDERS: General Practice; Emergency Provider Emergency Medicine
DX: O20.0 Threatened abortion (principal); O99.331 Smoking (tobacco) complicating pregnancy, first trimester; F17.210 Nicotine dependence, cigarettes, uncomplicated; Z3A.13 13 weeks gestation of pregnancy; Z87.440 Personal history of urinary (tract) infections
CPT/HCPCS: 36415; 76816; 76817; 84702; 85025; 85461; 86850; 86900; 86901; 99284